=== PATIENT | male | born 1975 | race African-American/Black ===

== ENCOUNTER 2021-07-28 17:37 | Emergency (ER) | payer SELFPAY ==
[~2021-07-28] VITALS: Ht 177.8 cm; Wt 85.0 kg
[~2021-07-28 17:37] MED LIST: AMOXICILLIN500 MG PO; BACTRIM DS1 TAB PO; CORTISPORIN OTI10 ML AD; MUPIROCIN2 % EX; NORCO1 TA1 PO; PERCOCET1 TA2 PO
[2021-07-28 21:00] VITALS: BP 156/98
== END 2021-07-28 20:55 | disposition home or self-care (01) | DRG 392 ==
LOC: ED 17:37
DX: R19.7 Diarrhea, unspecified (principal); R53.1 Weakness; F17.200 Nicotine dependence, unspecified, uncomplicated; Z20.822 Contact with and (suspected) exposure to COVID-19

== ENCOUNTER 2023-08-21 12:20 | Emergency (ER) | payer OTHER ==
[~2023-08-21] VITALS: Ht 177.8 cm; Wt 81.6 kg
[2023-08-21 12:29] VITALS: BP 116/77
[2023-08-21 12:30] VITALS: BP 108/71
[2023-08-21] MEDS ORDERED: NAPROXEN 250 MG/TAB PO ONE (12:45)
[2023-08-21] MEDS ORDERED: METHOCARBAMOL 500 MG/TAB PO ONE (12:50)
[2023-08-21 13:06] LABS: BASO% 0.9 % (0-3); HEMATOCRIT 36.4 % (39.0-50.0); HEMOGLOBIN 11.9 g/dl (14.0-18.0); LYMPH% 51.6 % (15-41); MEAN CELL VOLUME 94.1 fL CALC (80.0-100.0); MEAN CORPUSCULAR HGB 30.7 pG CALC (26.0-32.0); MEAN CORPUSCULAR HGB CONC 32.7 g/dL CAL (32.0-36.0); MONO% 13.7 % (2-13); NEUT# 1.09 thou/uL (1.82-7.42); NEUT% 31.8 % (42-76); RED BLOOD COUNT 3.87 mill/uL (4.70-6.10); RED CELL DISTRI WIDTH 14.6 % (11.5-15.5)
[2023-08-21 13:42] LABS: ALBUMIN 4.1 g/dL (3.2-5.0); ALKALINE PHOSPHATASE 55 u/l (38-126); ANION GAP 9 (6-22 (CALC)); BILIRUBIN, TOTAL 0.3 mg/dL (0.2-1.3); BUN 11 mg/dL (9-20); BUN/CREATININE RATIO 10 (12-20 (CALC)); CARBON DIOXIDE 25 mmol/l (22-30); CHLORIDE 108 mmol/l (95-108); CREATININE 1.2 mg/dL (0.7-1.3); GFR FOR AFR.AMER. > 60 ML/MIN (>=60 (CALC)); GFR OTHER RACES > 60 ML/MIN (>=60 (CALC)); POTASSIUM 4.1 mmol/l (3.5-5.1); SGOT/AST 34 u/l (17-59); SODIUM 139 mmol/l (137-146); TOTAL PROTEIN 6.8 g/dL (6.3-8.2)
[2023-08-21] MEDS ORDERED: METHOCARBAMOL500 MG PO (14:16)
[2023-08-21] MEDS ORDERED: NAPROXEN500 MG PO (14:16)
[2023-08-21 14:21] VITALS: BP 108/71
== END 2023-08-21 14:30 | disposition home or self-care (01) ==
LOC: ED 12:20
PROVIDERS: Nurse Practitioner
DX: S76.911A Strain of unspecified muscles, fascia and tendons at thigh level, right thigh, initial encounter (principal); X58.XXXA Exposure to other specified factors, initial encounter; Z72.0 Tobacco use; Z98.1 Arthrodesis status